=== PATIENT | female | born 1985 | race Caucasian/White ===

== ENCOUNTER 2018-02-07 08:24 | Emergency (ER) | payer MEDICAID ==
[2018-02-07] MEDS ORDERED: NORMAL SALINE 1000 ML 1,000 ML IV ONE (09:30)
[2018-02-07] MEDS ORDERED: CEFAZOLIN INJ 1 GM VIAL IV ONE (09:30)
[2018-02-07] MEDS ORDERED: LIDOCAINE 1%/EPINEPHRINE INJ 20 ML VIAL INJ ONE (09:31)
[2018-02-07] MEDS ORDERED: BACITRACIN ZINC OINTMENT 15 GM TP ONE (09:32)
[2018-02-07 11:08] LABS: INTERNATIONAL RATION (INR) 0.95; PROTHROMBIN TIME 13.2 SEC (11.4-15.4)
[2018-02-07 11:32] LABS: PARTIAL THROMBOPLASTIN TIME < 23.0 SEC (23.5-35.8)
[2018-02-07 12:24] LABS: ABSOLUTE LYMPHOCYTES (AUTO) 1.7 10^3/uL (0.5-4.7); ABSOLUTE MONOCYTES (AUTO) 0.5 10^3/uL (0.1-1.4); ABSOLUTE NEUT (AUTO) 7.9 10^3/uL (1.7-8.2); BASOPHILS % (AUTO) 0.2 % (0-2); EOSINOPHILS % (AUTO) 0.4 % (0-6); HEMATOCRIT 37.2 % (36.0-47.0); HEMOGLOBIN 12.9 g/dL (12.0-15.5); LYMPHOCYTES % (AUTO) 16.9 % (13-45); MEAN CORPUSCULAR HEMOGLOBIN 29.1 pg (27.0-33.4); MEAN CORPUSCULAR HGB CONC 34.6 g/dL (32.0-36.0); MEAN CORPUSCULAR VOLUME 84 fl (80-97); MONOCYTES % (AUTO) 5.2 % (3-13); PLATELET COUNT 181 10^3/uL (150-450); RED BLOOD COUNT 4.41 10^6/uL (3.72-5.28); RED CELL DISTRIBUTION WIDTH 13.6 % (11.5-14.0); SEGMENTED NEUTROPHILS % (AUTO) 77.3 % (42-78); TOTAL CELLS COUNTED % (AUTO) 100 %; WHITE BLOOD COUNT 10.2 10^3/uL (4.0-10.5)
[2018-02-07 12:42] LABS: ALANINE AMINOTRANSFERASE 55 U/L (9-52); ALKALINE PHOSPHATASE 77 U/L (38-126); ANION GAP 15 (5-19); ASPARTATE AMINO TRANSFERASE 41 U/L (14-36); BILIRUBIN,DIRECT 0.2 mg/dL (0.0-0.4); BILIRUBIN,TOTAL 0.3 mg/dL (0.2-1.3); BLOOD UREA NITROGEN 14 mg/dL (7-20); CALCIUM 9.1 mg/dL (8.4-10.2); CARBON DIOXIDE 25 mmol/L (22-30); CHLORIDE 102 mmol/L (98-107); GLUCOSE 93 mg/dL (75-110); SODIUM 142.2 mmol/L (137-145); TOTAL PROTEIN 7.3 g/dL (6.3-8.2)
[2018-02-07 12:44] LABS: ACETAMINOPHEN < 10 ug/mL (10-30); ALCOHOL < 10 mg/dL (NONE DETECTED)
[2018-02-07 13:50] LABS: APPEARANCE,URINE SLIGHTLY-CLOUDY; BILIRUBIN,URINE NEGATIVE (NEGATIVE); COLOR,URINE AMBER; GLUCOSE, URINE NEGATIVE (NEGATIVE); KETONES,URINE NEGATIVE (NEGATIVE); LEUKOCYTE ESTERASE,URINE NEGATIVE (NEGATIVE); NITRITE,URINE NEGATIVE (NEGATIVE); PROTEIN,URINE 30 mg/dL (NEGATIVE); UROBILINOGEN,URINE NEGATIVE mg/dL (<2.0)
[2018-02-07 14:03] LABS: URINE AMPHETAMINES SCREEN NEGATIVE; URINE BARBITURATES SCREEN NEGATIVE; URINE BENZODIAZEPINES SCREEN NEGATIVE; URINE COCAINE SCREEN NEGATIVE; URINE MARIJUANA (THC) SCREEN NEGATIVE; URINE METHADONE SCREEN NEGATIVE; URINE PHENCYCLIDINE SCREEN NEGATIVE
--- NOTE | 2018-02-07 15:54 | ER Document Report ---
ED Psych Disorder / Suicide - General Chief Complaint: Depression Stated Complaint: LEFT ARM LACERATION/PSYCH EVAL Time Seen by Provider: 02/07/18 08:56 Mode of Arrival: Stretcher Information source: Patient Notes: Patient to Ambien and drank alcohol last night. Afterwards she used an object and cut her left forearm. Denies suicidal ideation or homicidal ideation. However she is feels tired of everything that has been going on around her and she would like to go away. TRAVEL OUTSIDE OF THE [place] IN LAST 30 DAYS: No - HPI Patient complains to provider of: Other - Suicidal behavior Onset: Other - Last night Onset was: Sudden Quality of pain: Dull Severity: Moderate Pain Level: 2 Suicide Risk Factors: Other mental health dx. Situational problems related to: Other Suicide Attempt Method: Stabbing/Cutting Overdose of: Alcohol Injury to: Upper extremity Normal mood: No Associated symptoms: Depressed, Tearful Similar symptoms previously: No Recently seen / treated by doctor: No - Related Data Allergies/Adverse Reactions: No Known Allergies Allergy (Verified 01/24/13 13:53) Past Medical History - Social History Smoking Status: Never Smoker Family History: Reviewed & Not Pertinent Patient has suicidal ideation: Yes Patient has homicidal ideation: No - Past Medical History Cardiac Medical History: Reports: Hx Hypertension Renal/ Medical History: Denies: Hx Peritoneal Dialysis Psychiatric Medical History: Reports: Hx Depression Past Surgical History: Reports: Hx Gynecologic Surgery - LEEP - Immunizations Hx Diphtheria, Pertussis, Tetanus Vaccination: Yes Hx Pneumococcal Vaccination: 06/29/00 Review of Systems - Review of Systems Constitutional: denies: Chills, Fever EENT: denies: Eye pain, Ear discharge Cardiovascular: No symptoms reported Respiratory: No symptoms reported Gastrointestinal: No symptoms reported Genitourinary: No symptoms reported Female Genitourinary: No symptoms reported Musculoskeletal: No symptoms reported Skin: Lesions, Other - Multple left forarm laceration. Hematologic/Lymphatic: denies: Easy bleeding, Easy bruising Neurological/Psychological: No symptoms reported -: Yes All other systems reviewed and negative Physical Exam - Vital signs Vitals: Temp Pulse Resp BP Pulse Ox 99.6 F 132 H 18 163/117 H 97 02/07/18 08:29 02/07/18 08:29 02/07/18 08:29 02/07/18 08:29 02/07/18 08:29 - General General appearance: Appears well, Alert In distress: None - HEENT Head: Normocephalic, Atraumatic Eyes: Normal Pupils: PERRL - Respiratory Respiratory status: No respiratory distress Chest status: Nontender Breath sounds: Normal Chest palpation: Normal - Cardiovascular Rhythm: Regular Heart sounds: Normal auscultation Murmur: No - Abdominal Inspection: Normal Distension: No distension Bowel sounds: Normal Tenderness: Nontender Organomegaly: No organomegaly - Back Back: Normal, Nontender - Extremities General lower extremity: Normal inspection Shoulder: Normal Arm: Normal Elbow: Normal Forearm: Laceration - Four diffents lacerations measuring 6cm, 5cm, 3cm amd 2cm. Wrist: Normal Hand: Normal Hip: Normal - Neurological Neuro grossly intact: Yes Cognition: Normal Orientation: AAOx4 [place] Coma Scale Eye Opening: Spontaneous Darryl Coma Scale Verbal: Oriented [place] Coma Scale Motor: Obeys Commands Darryl Coma Scale Total: 15 Speech: Normal Motor strength normal: LUE, RUE, LLE, RLE Sensory: Normal - Psychological Associated symptoms: Depressed, Flat affect, Tearful - Skin Skin Temperature: Warm Skin Moisture: Dry Skin Color: Normal Skin irregularity: Laceration Location of irregularity: Extremities Character of irregularity: Linear Course - Vital Signs Vital signs: Temp Pulse Resp BP Pulse Ox 99.6 F 132 H 18 163/117 H 97 02/07/18 08:29 02/07/18 08:29 02/07/18 08:29 02/07/18 08:29 02/07/18 08:29 - Laboratory Result Diagrams: 02/07/18 11:57 02/07/18 11:57 Laboratory results interpreted by me: 02/07/18 02/07/18 02/07/18 10:34 11:57 11:57 APTT < 23.0 L AST 41 H ALT 55 H Urine Protein Salicylates < 1.0 L Acetaminophen < 10 L 02/07/18 13:31 APTT AST ALT Urine Protein 30 H Salicylates Acetaminophen - Diagnostic Test Radiology reviewed: Reports reviewed - Transfer of Care Notes: 02/07/18 17:15 Patient is medically cleared for psychiatric evaluation. [facility] psychiatric personnel on-call to the ED and evaluated the patient. She recommend keeping the patient in the ED to tomorrow morning when a final evaluation will be done to determine her final disposition. Procedures - Laceration/Wound Repair Left Medial Arm Time completed: 10:20 Wound length (cm): 16 Wound's Depth, Shape: Superficial, Linear Laceration pre-procedure: Sterile drapes applied, Shur-Clens applied Anesthetic type: 1% Lidocaine w/epi Volume Anesthetic (mLs): 10 Wound explored: Clean, No foreign body removed Irrigated w/ Saline (mLs): 250 Wound Repaired With: Sutures Suture Size/Type: 4:0, Prolene, Nylon Number of Sutures: 19 Layer Closure?: No Post-procedure wound care: Sterile dressing applied Post-procedure NV exam normal: No Complications: No Discharge - Discharge Clinical Impression: Suicidal behavior Qualifiers: Attempted self-injury: with attempted self-injury Qualified Code(s): T14.91XA - Suicide attempt, initial encounter Laceration of left forearm without foreign body Qualifiers: Encounter type: initial encounter Qualified Code(s): S51.812A - Laceration without foreign body of left forearm, initial encounter Major depression Qualifiers: Major depression recurrence: recurrent Active/Remission status: remission status unspecified Qualified Code(s): F33.9 - Major depressive disorder, recurrent, unspecified Condition: Stable Referrals: SONY PUGA, [facility] [Primary Care Provider] - Follow up as needed
[2018-02-07] MEDS ORDERED: ACETAMINOPHEN 325 MG TABLET PO ONE (19:13)
[2018-02-07] MEDS ORDERED: HYDROCODONE/ACETAMINOPHEN 5-325 MG TABLET PO ONE (20:29)
[2018-02-08] MEDS ORDERED: ACETAMINOPHEN 325 MG TABLET PO ONE (08:08)
[2018-02-08 09:53] VITALS: BP 166/100
[2018-02-08] MEDS ORDERED: IBUPROFEN 600 MG TABLET PO ONE (10:08)
--- NOTE | 2018-02-08 10:11 | ER Document Report ---
Doctor's Note Notes: 02/08/18 10:05 32-year-old female with history of depression presented yesterday 02/07/2018 after consuming alcohol and Ambien and then subsequently cutting her arm. Patient denies suicidal ideation. She states that she was only trying to fall asleep. She cut her arm for pain relief which she has done in the past. Patient has been evaluated by psychiatry and the plan is to discuss discharge home with the patient's mother later today if she is willing to contract for safety. Current medication recommendations include discontinuation of the patient's Ativan. Wellbutrin 150 mg daily will be prescribed for 5 days then decrease to 75 mg for 5 days and ultimately discontinued. BuSpar 10 mg twice daily will be added and Prozac 40 mg daily will be prescribed for 5 days only and then discontinued. Patient will be followed at [facility].. Patient currently complaining of left arm pain where the laceration is. Otherwise she has had no events overnight and has been cooperative. PHYSICAL EXAMINATION: GENERAL: Well-appearing, well-nourished and in no acute distress. HEAD: Atraumatic, normocephalic. EYES: Pupils equal round extraocular movements intact, conjunctiva are normal. ENT: Nares patent NECK: Normal range of motion LUNGS: No respiratory distress Musculoskeletal: Normal range of motion NEUROLOGICAL: Normal speech, normal gait. PSYCH: Normal mood, normal affect. SKIN: left forearm laceration CDI. 02/08/18 10:09
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
[2018-02-08] MEDS ORDERED: BUPROPION HCL 75 MG TABLET PO SCH (10:15)
[2018-02-08] MEDS ORDERED: FLUOXETINE HCL 20 MG CAPSULE PO SCH (10:15)
[2018-02-08] MEDS ORDERED: BUSPIRONE HCL 10 MG TABLET PO SCH (10:15)
== END 2018-02-08 10:44 | disposition home or self-care (01) ==
LOC: ER 08:24
DX: S51.812A Laceration without foreign body of left forearm, initial encounter (principal); X78.9XXA Intentional self-harm by unspecified sharp object, initial encounter; F33.9 Major depressive disorder, recurrent, unspecified; Z79.899 Other long term (current) drug therapy; I10 Essential (primary) hypertension
CPT/HCPCS: 99285; 96361; 96365; 36415; 87040; 80307 ×4; 84443; 85025; 85610; 85730; 81025; 80053; 81001; 12005; J3490 ×6; J0690; J7030; 96360

== ENCOUNTER 2018-07-15 07:33 | Emergency (ER) | payer MEDICAID, OTHER ==
--- NOTE | 2018-07-15 08:26 | ER Document Report ---
ED General - General Chief Complaint: Mouth Problem Stated Complaint: ABDOMINAL PAIN Time Seen by Provider: 07/15/18 08:22 TRAVEL OUTSIDE OF THE [place] IN LAST 30 DAYS: No - HPI Notes: A 3-year-old female presents the ED for complaints of sore throat, some sores in her mouth and some nausea vague epigastric abdominal pain that has been occurring for the last 2 days. Patient was just released from incarceration approximately 2 days ago, was placed be taking 80 mg of Prozac which she has been taking for years and abruptly stopped due to not having medication accessible during incarceration. Patient also reportedly admits to smoking ice approximately 2 days ago, patient did get her flu shot this year. Last menstrual period was a week ago. Denies fevers, chills, chest pain,palpitations, shortness of breath, dyspnea, nausea, vomiting, diarrhea, abdominal pain, hematuria,blurred vision, double vision, loss of vision, speech changes, LH, dizziness, syncope, headaches, wheezing,, URI, neck pain, weakness, bowel or bladder dysfunction, saddle anesthesia, numbness or tingling in bilateral upper or lower extremities equally, muscle paralysis, weakness in bilateral upper or lower extremities equally or rash. - Related Data Allergies/Adverse Reactions: labetalol Allergy (Verified 07/15/18 07:35) Past Medical History - General Information source: Patient - Social History Smoking Status: Current Every Day Smoker Family History: Reviewed & Not Pertinent - Past Medical History Cardiac Medical History: Reports: Hx Hypertension Renal/ Medical History: Denies: Hx Peritoneal Dialysis Psychiatric Medical History: Reports: Hx Depression Past Surgical History: Reports: Hx Gynecologic Surgery - LEEP - Immunizations Hx Diphtheria, Pertussis, Tetanus Vaccination: Yes Hx Pneumococcal Vaccination: 06/29/00 Review of Systems - Review of Systems Constitutional: No symptoms reported EENT: See HPI Cardiovascular: No symptoms reported Respiratory: No symptoms reported Gastrointestinal: No symptoms reported Genitourinary: No symptoms reported Female Genitourinary: No symptoms reported Musculoskeletal: No symptoms reported Skin: No symptoms reported Hematologic/Lymphatic: No symptoms reported Neurological/Psychological: No symptoms reported Physical Exam - Vital signs Vitals: Temp Pulse Resp BP Pulse Ox 98.4 F 127 H 16 148/97 H 100 07/15/18 07:37 07/15/18 07:37 07/15/18 07:37 07/15/18 07:37 07/15/18 07:37 - Notes Notes: PHYSICAL EXAMINATION: GENERAL: Well-appearing, well-nourished and in no acute distress. HEAD: Atraumatic, normocephalic. EYES: Pupils equal round and reactive to light, extraocular movements intact, conjunctiva are normal. ENT: Nares patent, oropharynx clear without exudates. Moist mucous membranes. NECK: Normal range of motion, supple without lymphadenopathy LUNGS: Breath sounds clear to auscultation bilaterally and equal. No wheezes rales or rhonchi. HEART: sinus tachycardia. Regular rate and rhythm without murmurs ABDOMEN: Soft, nontender, nondistended abdomen. No guarding, no rebound. No masses appreciated. Female : deferred Musculoskeletal: Normal range of motion, no pitting or edema. No cyanosis. NEUROLOGICAL: Cranial nerves grossly intact. Normal speech, normal gait. Normal sensory, motor exams PSYCH: Normal mood, normal affect. SKIN: Warm, Dry, normal turgor, no rashes or lesions noted. Course - Re-evaluation Re-evalutation: 07/15/18 09:55 33-year-old female presents the ED who is tachycardic afebrile vitals otherwise stable for evaluation of sore throat, nausea that started 3 days ago. Patient states she was taking Prozac 80 mg daily for "years" and states she abruptly stopped taking medication last week due to running out of medication and not b eing able to get a refill with her primary care provider. States that she did smoke ice a couple days ago, was just released from incarceration. Flu as well as rapid strep negative, CBC negative for leukocytosis or anemia, CMP negative for hepatic renal dysfunction, urinalysis does show a questionable interference with methamphetamine, though patient states she did smoke ice. Patient states she has been more nervous. Does have an appointment with primary care provider beginning of July. Patient presents with multiple vague complaints that did not appear to be concerning for any acute life-threatening pathology. Vitals are within normal limits at triage and at time of discharge. Physical examination is unremarkable. Patient has tolerated oral intake without difficulty. Patient was not noted to be in distress at any point during their ER visit. At this time, based on the reassuring evaluation, I do not suspect an acute TX, pulmonary embolus, aortic dissection, acute intra-abdominal pathology, stroke, or sepsis.Will discharge with return precautions and [facility] Results with Dr. Maritza OSORIO regarding pertinent laboratory, diagnostic and clinical findings, patient is still slightly tachycardic at 110 on monitor patient adamantly states that she does not have any shortness of breath chest pain, and does not take control. Denies any recent surgery, immobilization, recent chemotherapy, . verbal discharge instructions given a the bedside and opportunity for questions given. Medication warnings reviewed. Patient is in agreement with this plan and has verbalized understanding of return precautions and the need for primary care follow-up in the next 24-72 hours. - Vital Signs Vital signs: Temp Pulse Resp BP Pulse Ox 98.4 F 127 H 25 H 150/91 H 97 07/15/18 07:37 07/15/18 07:37 07/15/18 11:33 07/15/18 10:46 07/15/18 11:33 - Laboratory Result Diagrams: 07/15/18 10:44 07/15/18 10:44 Laboratory results interpreted by me: 07/15/18 07/15/18 07/15/18 10:44 10:44 10:44 Hct 34.1 L AST 49 H Creatine Kinase 671 H CK-MB (CK-2) 6.49 H Urine Protein Urine Ketones Urine Blood 07/15/18 10:50 Hct AST Creatine Kinase CK-MB (CK-2) Urine Protein 100 H Urine Ketones 80 H Urine Blood LARGE H Discharge - Discharge Clinical Impression: Acute bacterial sinusitis, Antidepressant discontinuation syndrome Pharyngitis Qualifiers: Pharyngitis/tonsillitis etiology: unspecified etiology Qualified Code(s): J02.9 - Acute pharyngitis, unspecified Condition: Stable Disposition: HOME, SELF-CARE Instructions: Sinusitis ([facility]), Sore Throat ([facility]) Additional Instructions: SORE THROAT: Sore throats may be caused by viruses, bacteria, or fungi. Most are due to a virus, and must get better on their own. Bacterial sore throats, particularly those due to "strep," need treatment with antibiotics. If an antibiotic is prescribed, be sure to take the medication for a full 10 days. Failure to take the antibiotic can result in complications such as rheumatic fever. Sometimes, an injection of antibiotics is given instead of pills or liquid. This single "shot" is equal in effectiveness to the oral medication. To relieve symptoms, take acetaminophen for pain. Sip clear liquids frequ ently, or eat popsicles or ice chips. Anesthetic sprays or lozenges may help. Make sure the air in the room is not too dry. Avoid using decongestants or antihistamines. Call the doctor if there is no improvement in two days, or if you have difficulty breathing, increasing throat pain, high fever, rash, or frequent vomiting. Sinusitis You have sinusitis, an infection of the sinus cavities of the face. The sinuses are air-filled chambers which open into the inside of the nose. Bacteria and pus fill a sinus, causing pain, drainage, and fever. Sinusitis is treated with antibiotics. Often, expectorants (to thin the sinus mucous) or decongestants (to reduce swelling) are prescribed as well. Healing requires seven to 10 days. Avoid chemical fumes, pollens, dusts, and smoke (especially cigarette smoke). Keep the air humidified in your bedroom and work area and take plenty of liquids by mouth. This condition can be serious if the infection spreads. If your symptoms worsen, or if you develop severe headache, high fever, stiff neck, or a rash, you must call the doctor or return for re-evaluation. Depression Your evaluation reveals that you have mental depression. While symptoms may be vague, they often include disturbance of sleep, fatigue, loss of appetite, and general loss of interest in life. While depression may be a side effect of drugs, or a reaction to a major change in your life, many cases have no known cause. If depression is acute, and related to a major loss in your life, you can expect it to clear completely with time. If you have been depressed a long time, are prone to repeated bouts of depression or low mood, or have been thinking of suicide, get help. Depression can be treated with anti-depressant medication and counselling. Long-term depression will often take a few weeks to clear, even with appropriate medication. Follow-up care is important. Contact your physician, the hospital emergency center, crisis line, or your counsellor if you are losing control or having self-destructive thoughts. FOLLOW-UP CARE: If you have been referred to a physician for follow-up care, call the physicians office for an appointment as you were instructed or within the next two days. If you experience worsening or a significant change in your symptoms, notify the physician immediately or return to the Emergency Department at any time for re-evaluation. Prescriptions: Amox Tr/Potassium Clavulanate [Augmentin 875-125 Tablet] 1 tab PO BID 10 Days #20 tablet Fluoxetine HCl [Prozac] 20 mg PO DAILY #7 capsule Referrals: SONY PUGA, SHERRIEC [COMMUNITY BASED STAFF] - Follow up tomorrow
[2018-07-15 09:05] LABS: A TYPE INFLUENZA AG NEGATIVE (NEGATIVE); B INFLUENZA AG NEGATIVE (NEGATIVE)
--- NOTE | 2018-07-15 10:41 | RADIOLOGY REPORT (SQ) ---
EXAM DESCRIPTION: CHEST 2 VIEWS COMPLETED DATE/TIME: 07/15/2018 10:34 am REASON FOR STUDY: tachycardia COMPARISON: None. EXAM PARAMETERS: NUMBER OF VIEWS: two views TECHNIQUE: Digital Frontal and Lateral radiographic views of the chest acquired. RADIATION DOSE: NA LIMITATIONS: none FINDINGS: LUNGS AND PLEURA: No opacities, masses or pneumothorax. No pleural effusion. MEDIASTINUM AND HILAR STRUCTURES: No masses or contour abnormalities. HEART AND VASCULAR STRUCTURES: Heart normal size. No evidence for failure. BONES: No acute findings. HARDWARE: None in the chest. OTHER: No other significant finding. IMPRESSION: NO ACUTE RADIOGRAPHIC FINDING IN THE CHEST. TECHNICAL DOCUMENTATION: JOB ID: [id number] [employer]- All Rights Reserved Reading location - IP/workstation name: [facility]
[2018-07-15 10:59] LABS: ABSOLUTE EOSINOPHILS # (AUTO) 0.1 10^3/uL (0.0-0.6); ABSOLUTE LYMPHOCYTES (AUTO) 2.3 10^3/uL (0.5-4.7); ABSOLUTE MONOCYTES (AUTO) 0.8 10^3/uL (0.1-1.4); ABSOLUTE NEUT (AUTO) 7.1 10^3/uL (1.7-8.2); BASOPHILS % (AUTO) 0.4 % (0-2); EOSINOPHILS % (AUTO) 0.9 % (0-6); HEMATOCRIT 34.1 % (36.0-47.0); HEMOGLOBIN 12.1 g/dL (12.0-15.5); LYMPHOCYTES % (AUTO) 21.8 % (13-45); MEAN CORPUSCULAR HEMOGLOBIN 29.6 pg (27.0-33.4); MEAN CORPUSCULAR HGB CONC 35.4 g/dL (32.0-36.0); MEAN CORPUSCULAR VOLUME 84 fl (80-97); MONOCYTES % (AUTO) 7.8 % (3-13); PLATELET COUNT 188 10^3/uL (150-450); RED BLOOD COUNT 4.07 10^6/uL (3.72-5.28); RED CELL DISTRIBUTION WIDTH 13.1 % (11.5-14.0); SEGMENTED NEUTROPHILS % (AUTO) 69.1 % (42-78); TOTAL CELLS COUNTED % (AUTO) 100 %; WHITE BLOOD COUNT 10.3 10^3/uL (4.0-10.5)
[2018-07-15 11:18] LABS: ALANINE AMINOTRANSFERASE 39 U/L (9-52); ALBUMIN 4.4 g/dL (3.5-5.0); ALKALINE PHOSPHATASE 87 U/L (38-126); ANION GAP 11 (5-19); ASPARTATE AMINO TRANSFERASE 49 U/L (14-36); BILIRUBIN,DIRECT 0.2 mg/dL (0.0-0.4); BILIRUBIN,TOTAL 1.2 mg/dL (0.2-1.3); BLOOD UREA NITROGEN 11 mg/dL (7-20); CALCIUM 9.3 mg/dL (8.4-10.2); CARBON DIOXIDE 23 mmol/L (22-30); CHLORIDE 105 mmol/L (98-107); CREATINE KINASE 671 U/L (30-135); GLUCOSE 94 mg/dL (75-110); POTASSIUM 3.7 mmol/L (3.6-5.0); SODIUM 138.9 mmol/L (137-145); TOTAL PROTEIN 7.1 g/dL (6.3-8.2)
[2018-07-15 11:30] LABS: CREATINE KINASE MB 6.49 ng/mL (<4.55)
[2018-07-15 11:31] LABS: TROPONIN I < 0.012 ng/mL
[2018-07-15 11:34] LABS: URINE BARBITURATES SCREEN NEGATIVE; URINE BENZODIAZEPINES SCREEN NEGATIVE; URINE COCAINE SCREEN NEGATIVE; URINE MARIJUANA (THC) SCREEN NEGATIVE; URINE METHADONE SCREEN NEGATIVE; URINE PHENCYCLIDINE SCREEN NEGATIVE
[2018-07-15 12:01] VITALS: BP 150/91
[2018-07-15 12:55] LABS: APPEARANCE,URINE SLIGHTLY-CLOUDY; BILIRUBIN,URINE NEGATIVE (NEGATIVE); GLUCOSE, URINE NEGATIVE (NEGATIVE); KETONES,URINE 80 mg/dL (NEGATIVE); LEUKOCYTE ESTERASE,URINE NEGATIVE (NEGATIVE); NITRITE,URINE NEGATIVE (NEGATIVE); PROTEIN,URINE 100 mg/dL (NEGATIVE); URINE SPECIFIC GRAVITY 1.027; UROBILINOGEN,URINE NEGATIVE mg/dL (<2.0)
[2018-07-15 12:56] LABS: COLOR,URINE DARK YELLOW
== END 2018-07-15 12:37 | disposition home or self-care (01) ==
LOC: ER 07:33
DX: J02.9 Acute pharyngitis, unspecified (principal); J01.90 Acute sinusitis, unspecified; B96.89 Other specified bacterial agents as the cause of diseases classified elsewhere; T43.225A Adverse effect of selective serotonin reuptake inhibitors, initial encounter; F19.90 Other psychoactive substance use, unspecified, uncomplicated; F17.200 Nicotine dependence, unspecified, uncomplicated; I10 Essential (primary) hypertension
CPT/HCPCS: 99283; 36415; 87070; 82553; 87880; 82550; 85025; 80053; 81001; 84484; 80307 ×2; 87804; 71046; G0480

== ENCOUNTER 2018-08-22 12:09 | Emergency (ER) | payer SELFPAY ==
--- NOTE | 2018-08-22 12:38 | ER Document Report ---
ED Medical Screen (RME) - General Chief Complaint: Swelling Stated Complaint: LEG PAIN, ANKLES SWELLING Time Seen by Provider: 08/22/18 12:33 Notes: Patient is a 33-year-old female previously healthy that presents to the emergency department for chief complaint of bilateral leg swelling. Patient reports having symptoms for about a week, denies having shortness of breath associated with chest pain. Recently started a new job, but has not experienced swelling in her feet like this before, and is not going down when she elevates her feet. ROS: Other than noted above, the 12 point review of systems was reviewed with the patient and were negative, all pertinent findings are included in the HPI. PHYSICAL EXAMINATION: Vital signs reviewed. GENERAL: Well-appearing, well-nourished and in no acute distress. HEAD: Atraumatic, normocephalic. EYES: Pupils equal round extraocular movements intact, conjunctiva are normal. ENT: Nares patent NECK: Normal range of motion CV: Heart regular rate and rhythm LUNGS: No respiratory distress Musculoskeletal: Bilateral lower extremity edema, seems to be generalized, versus minor pitting edema NEUROLOGICAL: Normal speech PSYCH: Normal mood, normal affect. MDM: Patient seen and examined for rapid initial assessment. Vital signs reviewed. A comprehensive ED assessment and evaluation of the patient, analysis of test results and completion of the medical decision making process will be conducted by additional ED providers. *Note is created using voice recognition software and may contain spelling, syntax or grammatical errors. TRAVEL OUTSIDE OF THE [place] IN LAST 30 DAYS: No - Related Data Allergies/Adverse Reactions: labetalol Allergy (Verified 07/15/18 07:35) Past Medical History - Social History Chew tobacco use (# tins/day): No Frequency of alcohol use: None Drug Abuse: None - Past Medical History Cardiac Medical History: Reports: Hx Hypertension Renal/ Medical History: Denies: Hx Peritoneal Dialysis Psychiatric Medical History: Reports: Hx Depression Past Surgical History: Reports: Hx Gynecologic Surgery - LEEP - Immunizations Hx Diphtheria, Pertussis, Tetanus Vaccination: Yes Physical Exam - Vital signs Vitals: Temp Pulse Resp BP Pulse Ox 97.9 F 81 20 150/106 H 96 08/22/18 12:18 08/22/18 12:18 08/22/18 12:18 08/22/18 12:18 02/24/19 12:18 Course - Vital Signs Vital signs: Temp Pulse Resp BP Pulse Ox 97.9 F 81 20 150/106 H 96 08/22/18 12:18 08/22/18 12:18 08/22/18 12:18 08/22/18 12:18 08/22/18 12:18
[2018-08-22 13:19] LABS: ABSOLUTE EOSINOPHILS # (AUTO) 0.2 10^3/uL (0.0-0.6); ABSOLUTE LYMPHOCYTES (AUTO) 1.8 10^3/uL (0.5-4.7); ABSOLUTE MONOCYTES (AUTO) 0.5 10^3/uL (0.1-1.4); ABSOLUTE NEUT (AUTO) 3.5 10^3/uL (1.7-8.2); BASOPHILS % (AUTO) 0.3 % (0-2); EOSINOPHILS % (AUTO) 2.9 % (0-6); HEMATOCRIT 35.9 % (36.0-47.0); LYMPHOCYTES % (AUTO) 29.6 % (13-45); MEAN CORPUSCULAR HEMOGLOBIN 28.7 pg (27.0-33.4); MEAN CORPUSCULAR HGB CONC 33.3 g/dL (32.0-36.0); MEAN CORPUSCULAR VOLUME 86 fl (80-97); MONOCYTES % (AUTO) 8.7 % (3-13); PLATELET COUNT 185 10^3/uL (150-450); RED BLOOD COUNT 4.18 10^6/uL (3.72-5.28); RED CELL DISTRIBUTION WIDTH 14.6 % (11.5-14.0); SEGMENTED NEUTROPHILS % (AUTO) 58.5 % (42-78); TOTAL CELLS COUNTED % (AUTO) 100 %; WHITE BLOOD COUNT 5.9 10^3/uL (4.0-10.5)
[2018-08-22 13:37] LABS: ALANINE AMINOTRANSFERASE 45 U/L (9-52); ALBUMIN 3.8 g/dL (3.5-5.0); ALKALINE PHOSPHATASE 68 U/L (38-126); ANION GAP 8 (5-19); ASPARTATE AMINO TRANSFERASE 73 U/L (14-36); BILIRUBIN,DIRECT 0.3 mg/dL (0.0-0.4); BILIRUBIN,TOTAL 0.4 mg/dL (0.2-1.3); BLOOD UREA NITROGEN 10 mg/dL (7-20); CALCIUM 9.4 mg/dL (8.4-10.2); CARBON DIOXIDE 26 mmol/L (22-30); CHLORIDE 107 mmol/L (98-107); GLUCOSE 86 mg/dL (75-110); POTASSIUM 4.3 mmol/L (3.6-5.0); SODIUM 141.4 mmol/L (137-145); TOTAL PROTEIN 6.2 g/dL (6.3-8.2)
--- NOTE | 2018-08-22 14:54 | RADIOLOGY REPORT (SQ) ---
EXAM DESCRIPTION: VENOUS BILATERAL LOWER COMPLETED DATE/TIME: 08/22/2018 2:44 pm REASON FOR STUDY: bilat le edema COMPARISON: None. TECHNIQUE: Dynamic and static dukes scale and color images acquired of both lower extremity venous sy stems. Selected spectral images acquired with additional compression and augmentation maneuvers. Imag es stored on PACS. LIMITATIONS: None. FINDINGS: RIGHT LEG COMMON FEMORAL AND FEMORAL: Normal phasicity, compression and augmentation. No visualized echogenic m aterial on dukes scale. No defects on color images. POPLITEAL: Normal compression and augmentation. No visualized echogenic material on dukes scale. No de fects on color images. CALF VESSELS: Normal compression and augmentation. No visualized echogenic material on dukes scale. No defects on color image. GSV AND SSV: Normal compression. No visualized echogenic material on dukes scale. No defects on color images. ANY DEEP VENOUS INSUFFICIENCY: Not evaluated. ANY EVIDENCE OF POPLITEAL CYST: No. OTHER: No other significant finding. LEFT LEG COMMON FEMORAL AND FEMORAL: Normal phasicity, compression and augmentation. No visualized echogenic m aterial on dukes scale. No defects on color images. POPLITEAL: Normal compression and augmentation. No visualized echogenic material on dukes scale. No de fects on color images. CALF VESSELS: Normal compression and augmentation. No visualized echogenic material on dukes scale. No defects on color images. GSV AND SSV: Normal compression. No visualized echogenic material on dukes scale. No defects on color images. ANY DEEP VENOUS INSUFFICIENCY: Not evaluated. ANY EVIDENCE POPLITEAL CYST: No. OTHER: No other significant finding. IMPRESSION: NO EVIDENCE DVT OR SVT IN EITHER LEG. TECHNICAL DOCUMENTATION: JOB ID: [id number] [place]-72 2010 [employer]- All Rights Reserved Reading location - IP/workstation name: [email or web address]
[2018-08-22] MEDS ORDERED: FUROSEMIDE 20 MG TABLET PO ONE (15:05)
--- NOTE | 2018-08-22 15:11 | ER Document Report ---
ED General - General Chief Complaint: Swelling Stated Complaint: LEG PAIN, ANKLES SWELLING Time Seen by Provider: 08/22/18 12:33 TRAVEL OUTSIDE OF THE [place] IN LAST 30 DAYS: No - HPI Notes: Patient presents to the emergency department for evaluation of lower leg edema. She states is been present for about a week. She describes the pain and pressure in them as well. She just started a new job, admits she is on her feet more often. She is up and down ladders. She denies any prolonged periods of immobility. She has had no surgeries in the last 2 months. She denies any personal or family history of blood clots. No personal history of cancer. She denies any chest pain or difficulty breathing. She is just concerned because the edema does not seem to resolve in the morning like it had in the past. She states it does decrease somewhat. - Related Data Allergies/Adverse Reactions: labetalol Allergy (Verified 08/22/18 12:40) Past Medical History - General Information source: Patient - Social History Smoking Status: Never Smoker Chew tobacco use (# tins/day): No Frequency of alcohol use: None Drug Abuse: None Family History: Reviewed & Not Pertinent Patient has suicidal ideation: No Patient has homicidal ideation: No - Past Medical History Cardiac Medical History: Reports: Hx Hypertension Renal/ Medical History: Denies: Hx Peritoneal Dialysis Psychiatric Medical History: Reports: Hx Depression Past Surgical History: Reports: Hx Gynecologic Surgery - LEEP, Hx Tubal Ligation - Immunizations Hx Diphtheria, Pertussis, Tetanus Vaccination: Yes Hx Pneumococcal Vaccination: 06/29/00 Review of Systems - Review of Systems Constitutional: No symptoms reported EENT: No symptoms reported Cardiovascular: See HPI, Edema Respiratory: No symptoms reported Gastrointestinal: No symptoms reported Musculoskeletal: No symptoms reported Skin: No symptoms reported Neurological/Psychological: No symptoms reported Physical Exam - Vital signs Vitals: Temp Pulse Resp BP Pulse Ox 97.9 F 81 20 150/106 H 96 08/22/18 12:18 08/22/18 12:18 08/22/18 12:18 08/22/18 12:18 08/22/18 12:18 Interpretation: Hypertensive - Notes Notes: Vital signs reviewed, please refer to chart. Patient is normocephalic, atraumatic. Pupils equal round, reactive to light. Neck is supple without meningismus. Heart is regular rate and rhythm. Lungs are clear to auscultation bilaterally. Abdomen is soft, nontender, normoactive bowel sounds throughout. Extremities without cyanosis, clubbing. Patient with 2+ pitting edema pretibial, bilaterally. No posterior calf tenderness. Peripheral pulses are equal. Skin is warm and dry. Patient is awake, alert, neurological exam is nonfocal. Course - Re-evaluation Re-evalutation: 08/22/18 15:11 Patient presents emergency department for evaluation of bilateral lower extremity edema. Bilateral Dopplers failed to reveal any evidence of venous thrombosis. Laboratory investigations revealed no significant electrolyte ab normality. I suspect this is all simply dependent edema. We did discuss weight reduction, reduction in sodium and it, increasing fluids. We discussed compression stockings. She was given 1 dose of oral Lasix here to help with her symptoms. She is told if her swelling continues she should have a repeat Doppler in 1 week. She voiced understanding this and was discharged. - Vital Signs Vital signs: Temp Pulse Resp BP Pulse Ox 97.9 F 81 20 150/106 H 96 08/22/18 12:18 08/22/18 12:18 08/22/18 12:18 08/22/18 12:18 08/22/18 12:18 - Laboratory Result Diagrams: 08/22/18 13:00 08/22/18 13:00 Laboratory results interpreted by me: 08/22/18 08/22/18 13:00 13:00 Hct 35.9 L RDW 14.6 H AST 73 H Total Protein 6.2 L Discharge - Discharge Clinical Impression: Peripheral edema Condition: Stable Instructions: Dependent Edema ([facility]) Additional Instructions: Decrease salt intake. Increase water. Keep legs elevated when possible. Use compression stockings as discussed. If your swelling continues in 1-2 weeks, he should have a repeat study. If you develop chest pain, difficulty breathing, or any other new or concerning symptoms, return immediately to the emergency department for reevaluation. Otherwise, follow-up with your primary care physician this week.
[2018-08-22 20:09] VITALS: BP 150/67
== END 2018-08-22 15:41 | disposition home or self-care (01) ==
LOC: ER 12:09
DX: R60.0 Localized edema (principal); I10 Essential (primary) hypertension; Z88.8 Allergy status to other drugs, medicaments and biological substances
CPT/HCPCS: 36415; 80053; 84703; 85025; 93970; 99284

== ENCOUNTER 2018-08-24 20:48 | Emergency (ER) | payer SELFPAY ==
--- NOTE | 2018-08-24 23:59 | ER Document Report ---
ED Headache - General Chief Complaint: Leg Swelling Stated Complaint: HEADACHE Time Seen by Provider: 08/24/18 23:56 Mode of Arrival: Ambulatory Information source: Patient Notes: HISTORY OF PRESENT ILLNESS: Patient is a 33-year-old female with a past medical history of untreated hypertension who presents with elevated blood pressure and increased swelling of the legs for the past 2 weeks. Location: Legs Onset: 2 weeks ago Provocation: Unknown Quality: "Tightness and burning" Radiation: None Severity: Mild to moderate Timing: Constant Chest pain: No Associated symptoms: No fevers or chills, no shortness of breath, no injury REVIEW OF SYSTEMS: CONSTITUTIONAL : Denies fever or chills, no sweats. Denies recent illness. EENT: Denies eye, ear, throat, or mouth pain or symptoms. Denies nasal or sinus congestion. CARDIOVASCULAR: Denies chest pain. RESPIRATORY: Denies cough, cold, or chest congestion. Denies shortness of breath, difficulty breathing, or wheezing. GASTROINTESTINAL: Denies abdominal pain. Denies nausea, vomiting, or diarrhea. Denies constipation. GENITOURINARY: Denies difficulty urinating, painful urination, burning, frequency, or blood in urine. Denies vaginal bleeding, abnormal or irregular periods. MUSCULOSKELETAL: Positive for leg swelling. Denies neck or back pain or joint pain or swelling. SKIN: Denies rash or skin lesions. HEMATOLOGIC : Denies easy bruising or bleeding. LYMPHATIC: Denies swollen, enlarged glands. NEUROLOGICAL: Denies altered mental status or loss of consciousness. Denies headache. Denies weakness or paralysis or loss of use of either side. Denies problems with gait or speech. Denies sensory or motor loss. PSYCHIATRIC: Denies anxiety or stress or depression. All other systems reviewed and negative. PHYSICAL EXAMINATION: GENERAL: Well-appearing, well-nourished and in no acute distress. HEAD: Atraumatic, normocephalic. No scalp deformity, depression, or crepitance. EYES: Pupils are 3 mm and equal/round/reactive to light, extraocular movements intact, sclera anicteric, conjunctiva are normal. ENT: Nares patent bilaterally, oropharynx clear without exudates or palatal petechia. Moist mucous membranes. No tonsil hypertrophy. NECK: Normal range of motion, supple without lymphadenopathy. LUNGS: Breath sounds present, equal, and clear to auscultation bilaterally. No wheezes, rales, or rhonchi. HEART: Regular rate and rhythm without murmurs, rubs, or gallops. 2+ peripheral pulses. Normal capillary refill. ABDOMEN: Soft, nontender, nondistended. Normoactive bowel sounds. No guarding, no rebound. No masses appreciated. BACK: Normal contour, no midline tenderness. Rectal exam deferred. PELVC: Deferred. EXTREMITIES: Normal range of motion, 2-3+ pitting edema of the bilateral lower extremities that is equal and symmetric without weeping or drainage, no erythema. No cyanosis. NEUROLOGICAL: No focal neurological deficits. Moves all extremities spontaneously and on command. PSYCH: Normal mood, normal affect. No suicidal thoughts/ideations. No homocidal thoughts/ideations. No hallucinations. SKIN: Warm, dry, normal turgor, no rashes or lesions noted. ASSESSMENT AND PLAN: This patient is a 33-year-old female who presents with untreated hypertension and increased peripheral edema in the lower extremities. Edema is symmetric, making DVT unlikely. 1. Will give oral lisinopril with Lasix and reassess. 2. Will likely discharge. TRAVEL OUTSIDE OF THE [place] IN LAST 30 DAYS: No - Related Data Allergies/Adverse Reactions: labetalol Allergy (Verified 08/22/18 12:40) Past Medical History - General Information source: Patient - Social History Smoking Status: Never Smoker Chew tobacco use (# tins/day): No Frequency of alcohol use: none for 30 days Drug Abuse: None Lives with: Family Family History: Reviewed & Not Pertinent Patient has suicidal ideation: No Patient has homicidal ideation: No - Past Medical History Cardiac Medical History: Reports: Hx Hypertension Pulmonary Medical History: Reports: None EENT Medical History: Reports: None Neurological Medical History: Reports: None Endocrine Medical History: Reports: None Renal/ Medical History: Reports: None. Denies: Hx Peritoneal Dialysis Malignancy Medical History: Reports: None GI Medical History: Reports: None Musculoskeletal Medical History: Reports None Skin Medical History: Reports None Psychiatric Medical History: Reports: Hx Depression Traumatic Medical History: Reports: None Infectious Medical History: Reports: None Past Surgical History: Reports: Hx Gynecologic Surgery - LEEP, Hx Tubal Ligation - Immunizations Immunizations up to date: Yes Hx Diphtheria, Pertussis, Tetanus Vaccination: Yes Hx Pneumococcal Vaccination: 06/29/00 Physical Exam - Vital signs Vitals: Temp Pulse Resp BP Pulse Ox 98.7 F 88 18 145/94 H 100 08/24/18 20:54 08/24/18 20:54 08/24/18 20:54 08/24/18 20:54 08/24/18 20:54 Course - Vital Signs Vital signs: Temp Pulse Resp BP Pulse Ox 97.7 F 66 18 126/79 H 96 08/25/18 02:29 08/25/18 02:29 08/25/18 02:29 08/25/18 02:29 08/25/18 02:29 Discharge - Discharge Clinical Impression: Peripheral edema, Uncontrolled hypertension Condition: Good Disposition: HOME, SELF-CARE Instructions: Edema, Peripheral ([facility]), Family Physicians / Practices, High B lood Pressure ([facility]) Additional Instructions: You have been evaluated in the Emergency Department for pain and swelling in your legs that is related to fluid buildup. While here, you were given medications and it is now safe to be discharged home. Please follow-up with your primary physician as instructed. Return to the Emergency Department if you experience chest pain, difficulty breathing, increased swelling, or any other concerning symptoms. Prescriptions: Furosemide [Lasix 40 mg Tablet] 40 mg PO QAM #30 tablet Lisinopril [Prinivil 10 mg Tablet] 10 mg PO DAILY #30 tablet Print Language: Bahamian
[2018-08-25] MEDS ORDERED: LISINOPRIL 10 MG TABLET PO ONE (01:23)
[2018-08-25] MEDS ORDERED: TRAMADOL HCL 50 MG TABLET PO ONE (01:23)
[2018-08-25] MEDS ORDERED: FUROSEMIDE 40 MG TABLET PO ONE (01:23)
[2018-08-25 02:29] VITALS: BP 126/79
== END 2018-08-25 02:40 | disposition home or self-care (01) ==
LOC: ER 20:48
DX: M79.89 Other specified soft tissue disorders (principal); R51 Headache; I10 Essential (primary) hypertension; Z98.51 Tubal ligation status
CPT/HCPCS: 99283

== ENCOUNTER → 2018-09-08 | Outpatient (CLI) | payer OTHER ==
[2018-09-08 10:51] LABS: ABSOLUTE EOSINOPHILS # (AUTO) 0.1 10^3/uL (0.0-0.6); ABSOLUTE LYMPHOCYTES (AUTO) 1.1 10^3/uL (0.5-4.7); ABSOLUTE MONOCYTES (AUTO) 0.3 10^3/uL (0.1-1.4); ABSOLUTE NEUT (AUTO) 3.9 10^3/uL (1.7-8.2); BASOPHILS % (AUTO) 0.4 % (0-2); EOSINOPHILS % (AUTO) 1.4 % (0-6); HEMATOCRIT 37.2 % (36.0-47.0); HEMOGLOBIN 12.7 g/dL (12.0-15.5); LYMPHOCYTES % (AUTO) 20.2 % (13-45); MEAN CORPUSCULAR HEMOGLOBIN 28.5 pg (27.0-33.4); MEAN CORPUSCULAR HGB CONC 34.2 g/dL (32.0-36.0); MEAN CORPUSCULAR VOLUME 84 fl (80-97); MONOCYTES % (AUTO) 5.6 % (3-13); PLATELET COUNT 166 10^3/uL (150-450); RED BLOOD COUNT 4.45 10^6/uL (3.72-5.28); RED CELL DISTRIBUTION WIDTH 13.9 % (11.5-14.0); SEGMENTED NEUTROPHILS % (AUTO) 72.4 % (42-78); TOTAL CELLS COUNTED % (AUTO) 100 %; WHITE BLOOD COUNT 5.4 10^3/uL (4.0-10.5)
[2018-09-08 12:03] LABS: ALANINE AMINOTRANSFERASE 33 U/L (9-52); ALKALINE PHOSPHATASE 56 U/L (38-126); ANION GAP 7 (5-19); ASPARTATE AMINO TRANSFERASE 30 U/L (14-36); BILIRUBIN,DIRECT 0.1 mg/dL (0.0-0.4); BILIRUBIN,TOTAL 0.3 mg/dL (0.2-1.3); BLOOD UREA NITROGEN 10 mg/dL (7-20); CALCIUM 9.6 mg/dL (8.4-10.2); CARBON DIOXIDE 28 mmol/L (22-30); CHLORIDE 101 mmol/L (98-107); GLUCOSE 97 mg/dL (75-110); POTASSIUM 4.3 mmol/L (3.6-5.0); SODIUM 135.6 mmol/L (137-145); TOTAL PROTEIN 6.3 g/dL (6.3-8.2)
== END ==
LOC: CCC 09:59
DX: Z00.00 Encounter for general adult medical examination without abnormal findings (principal)
CPT/HCPCS: 36415; 80053; 83036; 84443; 85025

== ENCOUNTER 2019-10-12 12:43 | Emergency (ER) | payer SELFPAY ==
[2019-10-12 12:46] VITALS: BP 139/93
--- NOTE | 2019-10-12 13:01 | ER Document Report ---
HPI - HPI Time Seen by Provider: 10/12/19 12:52 Pain Level: 4 Notes: Patient is a 34-year-old female presenting to the emergency department chief complaint of dental pain. Patient reports she has had an abscess between the 2 front teeth for at least 3 days. She reports history of same, states that she had been put on antibiotics a few months ago for this and the symptoms have returned. She does not have a dentist. Denies any fevers. - CONSTITUTIONAL Constitutional: DENIES: Fever, Chills - EENT EENT: DENIES: Sore Throat, Ear Pain, Eye problems - NEURO Neurology: DENIES: Headache, Weakness, Vision blurred, Dizzinesss / Vertigo - CARDIOVASCULAR Cardiovascular: DENIES: Chest pain - RESPIRATORY Respiratory: DENIES: Trouble Breathing, Coughing - GASTROINTESTINAL Gastrointestinal: DENIES: Abdominal Pain, Black / Bloody Stools - URINARY Urinary: DENIES: Dysuria, Urgency, Frequency - REPRODUCTIVE Reproductive: DENIES: : - MUSCULOSKELETAL Musculoskeletal: DENIES: Extremity pain Past Medical History - General Information source: Patient - Social History Smoking Status: Current Every Day Smoker Chew tobacco use (# tins/day): No Frequency of alcohol use: None Drug Abuse: None Family History: Reviewed & Not Pertinent Patient has suicidal ideation: No Patient has homicidal ideation: No - Past Medical History Cardiac Medical History: Reports: Hx Hypertension Renal/ Medical History: Denies: Hx Peritoneal Dialysis Psychiatric Medical History: Reports: Hx Depression Past Surgical History: Reports: Hx Gynecologic Surgery - LEEP, Hx Tubal Ligation - Immunizations Immunizations up to date: Yes Hx Diphtheria, Pertussis, Tetanus Vaccination: Yes Hx Pneumococcal Vaccination: 06/29/00 Vertical Provider Document - CONSTITUTIONAL Notes: PHYSICAL EXAMINATION: GENERAL: Well-appearing, well-nourished and in no acute distress. HEAD: Atraumatic, normocephalic. EYES: Pupils equal round extraocular movements intact, conjunctiva are normal. ENT: Nares patent, slight erythema noted between teeth #8 and 9, very small fluctuant abscess. NECK: Normal range of motion LUNGS: No respiratory distress Musculoskeletal: Normal range of motion NEUROLOGICAL: Normal speech, normal gait. PSYCH: Normal mood, normal affect. SKIN: Warm, Dry, normal turgor, no rashes or lesions noted. - INFECTION CONTROL TRAVEL OUTSIDE OF THE [place] IN LAST 30 DAYS: No Course - Re-evaluation Re-evalutation: Patient has a dental abscess between tooth #8 and 9, this was drained with a nee dle. There is now purulent drainage coming from it. There is no facial swelling noted, no fever, patient will be placed on antibiotics and discharged home. - Vital Signs Vital signs: Temp Pulse Resp BP Pulse Ox 98.8 F 87 18 139/93 H 100 10/12/19 12:46 10/12/19 12:46 10/12/19 12:46 10/12/19 12:46 10/12/19 12:46 Discharge - Discharge Clinical Impression: Pain, dental Condition: Stable Disposition: HOME, SELF-CARE Additional Instructions: You have been seen for dental pain. It is very important that you follow-up with a dentist for definitive care. Please return if you develop fever greater than 101, swelling in your face, vomiting, difficulty breathing or swallowing, or any other symptoms that are concerning to you. For pain you should take ibuprofen 800 mg every 8 hours as needed. [facility] [phone] Prescriptions: Penicillin V Potassium [Penicillin Vk 500 mg Tablet] 500 mg PO BID #20 tablet Referrals: [facility] [NO LOCAL MD] - Follow up as needed
== END 2019-10-12 13:02 | disposition home or self-care (01) ==
LOC: ER 12:43
DX: K08.9 Disorder of teeth and supporting structures, unspecified (principal); F17.200 Nicotine dependence, unspecified, uncomplicated; I10 Essential (primary) hypertension; Z98.51 Tubal ligation status
CPT/HCPCS: 99282